=== PATIENT | male | born 1960 | race Caucasian/White ===

== ENCOUNTER 2016-11-30 16:30 | Emergency (ER) | payer OTHER ==
[~2016-11-30] VITALS: Ht 170.2 cm; Wt 88.5 kg
[~2016-11-30 16:30] MED LIST: NEXI10GR PO; ZOLO50TA PO
[2016-11-30] MEDS ORDERED: FAMO1TAB25 PO (16:51)
[2016-11-30] MEDS ORDERED: DICL75TA PO (18:41)
[2016-11-30 18:47] VITALS: BP 163/100
== END 2016-11-30 18:51 | disposition home or self-care (01) ==
LOC: M ED 17:27
DX: M25.562 Pain in left knee (principal); Z79.899 Other long term (current) drug therapy

== ENCOUNTER → 2019-05-20 | Outpatient (CLI) | payer OTHER ==
[~2019-05-20] MED LIST changes: +DICL75TA PO; +FAMO1TAB25 PO
--- NOTE | 2019-05-20 18:21 | REP ---
Right knee series: Five views. History: Right knee pain. Findings: Five views of the right knee demonstrate a normal fabella. There is mild vascular calcification in the proximal calf. [place] view demonstrates lateral patellar spurring consistent with early patellofemoral osteoarthritis. Bones joints and soft tissues are otherwise unremarkable. Impression: Mild lateral patellar spurring. A normal fabella. Otherwise unremarkable right knee radiographs. Electronically Signed by Shad Garcia MD 05/20/2019 07:26 P
== END ==
LOC: M RAD 07:33
PROVIDERS: ATTEND Family Medicine
DX: M25.761 Osteophyte, right knee (principal)

== ENCOUNTER → 2020-12-10 | Outpatient (CLI) | payer OTHER ==
[~2020-12-10] MED LIST changes: +LOSA50TA88; +TAMS1CAP17
== END ==
LOC: M LABSMTC 08:44
PROVIDERS: ATTEND Anesthesiology
DX: Z01.818 Encounter for other preprocedural examination (principal); Z11.52 Encounter for screening for COVID-19

== ENCOUNTER 2020-12-15 08:39 | Day surgery (SDC) | payer OTHER ==
[~2020-12-15] VITALS: Ht 170.2 cm; Wt 94.3 kg
[~2020-12-15 08:39] MED LIST changes: +LIDOCAINE 2% 100MG/5ML SDV (FOR ANES.) As Ordered ONE; +NS 1,000 ML IV ONE; +propofoL 200 MG/20 ML VIAL As Ordered ONE
--- NOTE | 2020-12-15 10:07 | ROOR ---
Patient Name: Aramis Pruitt Procedure Date: 12/15/2020 9:45 AM Date of : 1960 Age: 60 Room: [facility] Gender: Male Note Status: Finalized Procedure: Colonoscopy Indications: High risk colon cancer surveillance: Personal history of colonic polyps Providers: Daniele Quijano Jr, MD Referring MD: Jason Edwards MD Requesting Provider: Medicines: Propofol per Anesthesia Complications: No immediate complications. Procedure: Pre-Anesthesia Assessment: - Prior to the procedure, a History and Physical was performed, and patient medications and allergies were reviewed. The patient is competent. The risks and benefits of the procedure and the sedation options and risks were discussed with the patient. All questions were answered and informed consent was obtained. Patient identification and proposed procedure were verified by the physician and the nurse in the pre-procedure area and in the procedure room. Mental Status Examination: alert and oriented. Airway Examination: normal oropharyngeal airway and neck mobility. Respiratory Examination: clear to auscultation. CV Examination: normal. ASA Grade Assessment: II - A patient with mild systemic disease. After reviewing the risks and benefits, the patient was deemed in satisfactory condition to undergo the procedure. The anesthesia plan was to use moderate sedation / analgesia (conscious sedation). Immediately prior to administration of medications, the patient was re-assessed for adequacy to receive sedatives. The heart rate, respiratory rate, oxygen saturations, blood pressure, adequacy of pulmonary ventilation, and response to care were monitored throughout the procedure. The physical status of the patient was re-assessed after the procedure. The Colonoscope was introduced through the anus and advanced to the cecum, identified by appendiceal orifice and ileocecal valve. The colonoscopy was performed without difficulty. The patient tolerated the procedure well. Findings: The rectum, recto-sigmoid colon, sigmoid colon, descending colon, transverse colon, cecum, appendiceal orifice and ileocecal valve appeared normal. A diminutive polyp was found in the ascending colon. The polyp was removed with a cold snare. Resection and retrieval were complete. Impression: - The rectum, recto-sigmoid colon, sigmoid colon, descending colon, transverse colon, cecum, appendiceal orifice and ileocecal valve are normal. - One diminutive polyp in the ascending colon, removed with a cold snare. Resected and retrieved. Recommendation: - Discharge patient to home (ambulatory). - Repeat colonoscopy in 5 years for surveillance. Procedure Code(s): --- Professional --- 90421, Colonoscopy, flexible; with removal of tumor(s), polyp(s), or other lesion(s) by snare technique Diagnosis Code(s): --- Professional --- Z86.010, Personal history of colonic polyps K63.5, Polyp of colon CPT copyright 2019 [employer]. All rights reserved. The codes documented in this report are preliminary and upon certified procedural coder review may be revised to meet current compliance requirements. Daniele Quijano MD Daniele Quijano Jr, MD 12/15/2020 10:06:49 AM Electronically signed by Daniele Quijano Jr, MD Number of Addenda: 0 Note Initiated On: 12/15/2020 9:45 AM Estimated Blood Loss: Estimated blood loss: none.
[2020-12-15 10:30] VITALS: BP 152/95
== END 2020-12-15 10:31 | disposition home or self-care (01) ==
LOC: M OPP 08:39
PROVIDERS: ATTEND Surgery
DX: Z12.11 Encounter for screening for malignant neoplasm of colon (principal); Z86.010 Personal history of colon polyps; K63.5 Polyp of colon; Z79.82 Long term (current) use of aspirin; Z79.899 Other long term (current) drug therapy

== ENCOUNTER → 2023-04-03 | Outpatient (CLI) | payer OTHER ==
[~2023-04-03] MED LIST changes: +FAMO10TA50 PO; -FAMO1TAB25 PO; -LIDOCAINE 2% 100MG/5ML SDV (FOR ANES.) As Ordered ONE; +LOSA50TA28; -LOSA50TA88; -NS 1,000 ML IV ONE; -propofoL 200 MG/20 ML VIAL As Ordered ONE
== END ==
LOC: M RAD 14:03
PROVIDERS: ATTEND Family Medicine
DX: N40.0 Benign prostatic hyperplasia without lower urinary tract symptoms (principal)

== ENCOUNTER → 2024-03-31 | Outpatient (CLI) | payer OTHER | LOC: M WUC 12:49 | PROVIDERS: ATTEND Family Medicine | DX: M54.50 Low back pain, unspecified (principal) ==

== ENCOUNTER → 2025-05-19 | Outpatient (REF) | payer OTHER ==
[2025-05-19 19:21] LABS: APPEARANCE, URINE CLEAR (CLEAR); BACTERIA, URINE AUTO NEGATIVE (NEGATIVE); BILIRUBIN, URINE AUTO NEGATIVE (NEGATIVE); BLOOD, URINE BLOOD NEGATIVE (NEGATIVE); GLUCOSE, URINE (UA) AUTO NEGATIVE (NEGATIVE); KETONE, URINE AUTO TRACE mg/dL (NEGATIVE); LEUKOCYTE ESTERASE, URINE AUTO NEGATIVE (NEGATIVE); MUCUS, URINE SMALL (NEGATIVE); NITRITE, URINE AUTO NEGATIVE (NEGATIVE); PROTEIN, URINE AUTO NEGATIVE (NEGATIVE); RBC, URINE AUTO 0 /HPF (0-3); SPECIFIC GRAVITY URINE AUTO 1.025 (1.002-1.035); SQUAMOUS EPITHELIAL CELL UR AU 0 /HPF (0-6); UROBILINOGEN, URINE AUTO 0.2 mg/dL (0.0-2.0); WBC, URINE AUTO 1 /HPF (0-3)
== END ==
LOC: M SMT 17:32
PROVIDERS: ATTEND Nurse Practitioner Family
DX: R35.0 Frequency of micturition (principal)